=== PATIENT | male | born 1940 | race Caucasian/White ===

== ENCOUNTER 2017-09-13 07:47 | Day surgery (SDC) | payer OTHER, BC ==
[2017-09-06 12:44] VITALS: BMI 27.6
[2017-09-13] MEDS ORDERED: LIDOCAINE HCL/PF 2% SDV 5ML VIAL ONE (07:49)
[2017-09-13] MEDS ORDERED: PROPOFOL 20 ML ONE ×2 (07:49)
[2017-09-13 08:11] VITALS: TEMP 97.6
[2017-09-13 09:51] VITALS: BP 136/76; PULSE 61
== END 2017-09-13 10:05 | disposition home or self-care (01) ==
LOC: FASU-ENDO 07:47
PROVIDERS: ATTEND Internal Medicine Gastroenterology
PROC: 0DJD8ZZ Inspection of Lower Intestinal Tract, Via Natural or Artificial Opening Endoscopic (ICD-10-PCS; principal; 2017-09-13 09:11)
DX: Z86.010 Personal history of colon polyps (principal); K57.30 Diverticulosis of large intestine without perforation or abscess without bleeding